=== PATIENT | female | born 1955 | race African-American/Black ===

== ENCOUNTER 2018-12-11 06:47 | Inpatient (IN) | payer OTHER ==
[~2018-12-11] VITALS: Ht 160 cm; Wt 112.5 kg
[2018-12-11] VITALS (10 sets, daily range): BP systolic 102–128; BP diastolic 56–82
[2018-12-11] MEDS ORDERED: ceFAZolin sod 1 GM in NS 55 ML IVPB ONE (07:00)
[2018-12-11] MEDS ORDERED: Gelfoam Size TOPIC ONE (07:30)
[2018-12-11] MEDS ORDERED: Thrombin 5000 units spray kit TOPIC ONE (07:30)
[2018-12-11] MEDS ORDERED: Bupivacaine w/Epi 0.5% 30ml Vial INJ ONE (07:30)
[2018-12-11] MEDS ORDERED: Thrombin 5000 units TOPIC ONE ×3 (07:30→07:38)
[2018-12-11] MEDS ORDERED: Gelfoam Absorbable 1gm powder pkt TOPIC ONE (07:31)
[2018-12-11] MEDS ORDERED: Bacitracin 50000 Units Vial ONE (07:31)
[2018-12-11] MEDS ORDERED: ATORVASTATIN CA20 MG ORAL (07:36)
[2018-12-11] MEDS ORDERED: ACTOS30 MG ORAL (07:36)
[2018-12-11] MEDS ORDERED: GLIPIZIDE5 MG ORAL (07:36)
[2018-12-11] MEDS ORDERED: METFORMIN HCL500 M1 ORAL (07:36)
[2018-12-11] MEDS ORDERED: Zemuron 50mg/5ml Inj IV ONE (07:56)
[2018-12-11] MEDS ORDERED: NS Irrig 1000ml ONE (08:00)
[2018-12-11] MEDS ORDERED: LR 1000ml ONE (08:00)
[2018-12-11] MEDS ORDERED: Sterile Water Irrig 1000ml IRRIG ONE (08:00)
--- NOTE | 2018-12-11 08:08 | Anethesia Preoperative Eval ---
Anesthesia Pre-op PMH/ROS General Date of Evaluation: December 11, 2018 Time of Evaluation: 08:11 Anesthesiologist: Corona ASA Score: ASA 3 Mallampati Score Class I : Soft palate, uvula, fauces, pillars visible Class II: Soft palate, uvula, fauces visible Class III: Soft palate, base of uvula visible Class IV: Only hard plate visible Mallampati Classification: Class III Surgeon: Bryan Diagnosis: Back Pain Surgical Procedure: Left L5-S1 Microdiscectomy, Laminotomy, Foraminotomy Family History: no anesthesia problems Allergies: Coded Allergies: LATEX (Verified Allergy, Severe, Rash, 12/11/18) NAPROXEN (Verified Allergy, Severe, Hives, 12/11/18) Medications: see eMAR Patient NPO?: Yes NPO Date: December 10, 2018 NPO Time: 2229 Past Medical History Cardiovascular: Reports: HTN, other - HL Endocrine: Reports: DM - FBS 144 Other: obesity - Morbid BMI 42 Anesthesia Pre-op Phys. Exam Physician Exam Last Vital Signs Date Time Temp Pulse Resp B/P (MAP) Pulse Ox O2 Delivery O2 Flow Rate FiO2 12/11/18 07:59 Room Air 12/11/18 07:32 97.6 84 18 128/82 (97) 98 Constitutional: NAD Neurologic: CN 2-12 intact Cardiovascular: RRR Respiratory: CTA Gastrointestinal: S/NT/ND Airway Exam Mallampati Score: Class III MO: limited ROM: limited Teeth: missing Anesthesia Pre-op A/P Risk Assessment & Plan Assessment: ASA 3 Plan: GA, SED, GlideScope Go Status Change Before Surgery: No Pre-Antibiotics Dru Grams Ancef IV Given Within 1 Hr of Incision: Yes Time Given: 08:36 Mt Jeter MD December 11, 2018 08:08
[2018-12-11] MEDS ORDERED: LR 1000ml 1,000 ML IVLG SCH (08:09)
[2018-12-11] MEDS ORDERED: Metoclopramide 10mg/2ml Inj IVP PRN (08:15)
[2018-12-11] MEDS ORDERED: Meperidine 50mg/ml Inj(FOR RIGORS ONLY) IVP PRN (08:15)
[2018-12-11] MEDS ORDERED: Hydromorphone 0.5mg/0.5ml inj IVP PRN ×2 (08:15→18:30)
[2018-12-11] MEDS ORDERED: DiphenhydrAMINE 50mg/ml Inj IVP PRN (08:15)
[2018-12-11] MEDS ORDERED: Atropine Sulfate 0.4mg/ml inj IVP PRN (08:15)
[2018-12-11] MEDS ORDERED: HYDROcodone/Acetamin 5/325 tab ORAL PRN (08:15)
[2018-12-11] MEDS ORDERED: HYDROcodone/Acetamin 7.5/325 tab ORAL PRN (08:15)
[2018-12-11] MEDS ORDERED: LORazepam Inj 2mg/ml 1ml IV PRN (08:15)
[2018-12-11] MEDS ORDERED: Midazolam 2mg/2ml Inj IVP PRN (08:15)
[2018-12-11] MEDS ORDERED: Labetalol 5mg/ml 20ml vial IV PRN (08:15)
[2018-12-11] MEDS ORDERED: fentaNYL 100 mcg/2 mL IV PRN (08:15)
[2018-12-11] MEDS ORDERED: oxyCODONE HCL/Acetaminophen 5/325mg ORAL PRN (08:15)
[2018-12-11] MEDS ORDERED: Acetaminophen (Non formulary) 100 ML IV ONE (08:15)
[2018-12-11] MEDS ORDERED: fentaNYL 100 mcg/2 mL IV ONE ×2 (08:24→10:10)
[2018-12-11] MEDS ORDERED: Lidocaine 1% MPF 10mg/ml 5ml ONE (08:26)
[2018-12-11] MEDS ORDERED: Lidocaine 1% Plain 30 ml INJ ONE (08:26)
--- NOTE | 2018-12-11 08:56 | Pre-Procedure Note/Attestation ---
Pre-Procedure Note/Attestation Complete Prior to Procedure Procedure Narrative: Lami discectomy l5s1 Indications for Procedure Pre-Operative Diagnosis: L5s1 HNP with radiculopathy Attestation I attest that I discussed the nature of the procedure; its benefits; risks and complications; and alternatives (and the risks and benefits of such alternatives ), prior to the procedure, with the patient (or the patient's legal internet sales representative). I attest that, if there was a reasonable possibility of needing a blood transfusion, the patient (or the patient's legal internet sales representative) was given the [facility] standardized written summary, pursuant to the [place] Blood Safety Act ([place] Health and Safety Code # 1645, as amended). I attest that I re-evaluated the patient just prior to the surgery and that there has been no change in the patient's H&P, except as documented below: Quentin Adams MD December 11, 2018 08:56
--- NOTE | 2018-12-11 09:00 | Immediate Post-Op Evaluation ---
Immediate Post-Op Evalulation Immediate Post-Op Evalulation Procedure: Left L5-S1 Microdiscectomy, Laminotomy, Foraminotomy Date of Evaluation: December 11, 2018 Time of Evaluation: 11:30 IV Fluids: 1000 LR Blood Products: 0 Estimated Blood Loss: 25 Urinary Output: 200 Blood Pressure Systolic: 102 Blood Pressure Diastolic: 63 Pulse Rate: 78 Respiratory Rate: 18 O2 Sat by Pulse Oximetry: 100 Temperature (Fahrenheit): 97.3 Pain Score (1-10): 3 Nausea: No Vomiting: No Complications 0 Patient Status: awake, reacts, patent, extubated, none Hydration Status: adequate Dru Grams Ancef IV Given Within 1 Hr of Incision: Yes Time Given: 08:36 Mt Jeter MD December 11, 2018 08:59
[2018-12-11] MEDS ORDERED: NS Irrig 1000ml IRRIG ONE (09:04)
[2018-12-11] MEDS ORDERED: Glycopyrrolate 0.2mg/ml 1ml Vial ONE (10:06)
[2018-12-11] MEDS ORDERED: D5 1/2NS 1,000 ML IV SCH (10:50)
--- NOTE | 2018-12-11 10:51 | Brief Operative Note ---
Immediate Post Operative Note Operative Note Pre-op Diagnosis: L5s1 HNP with radiculopathy Procedure: Ll5S1 lami/discectomy Post-op Diagnosis: same as pre-op Findings: consistent w/pre-op dx studies Surgeon: talya Spiral Gear Generator: jeanie packer Anesthesiologist: fco Yin Anesthesia: general Specimen: yes Complications: none Condition: stable Fluids: 1L Estimated Blood Loss: minimal Drains: hemovac Implant(s) used?: No Quentin Adams MD December 11, 2018 10:51
[2018-12-11] MEDS ORDERED: Milk of Magnesia 30ml Ud ORAL PRN (11:00)
--- NOTE | 2018-12-11 11:19 | NUR ---
LATEX FREE ENVIRONMENT MAINTAINED FOR PATIENT
--- NOTE | 2018-12-11 12:10 | NUR ---
NURSE NOTES:Received patient fr.pacu by bed s/p l5/c1mmtagqnqjg/foraminotomy/microdiscectomy,drowsy bur arousable moving all extremities,iv site right hand#18 patent,on 3liters n/c,back dressing c/d/i.but hemovac not suctioning upon arrival to floor,ice packon.per wilderness guide(jami). is aware.current pain 10/24,was just medicated in pacu.awaiting for call back fr.dr thapa for pain mgt.patient and family aware.plan of care discussed and verbalized understanding.
--- NOTE | 2018-12-11 13:20 | NUR ---
NURSE NOTES:place a call to dr. thapa for pain meds.awaiting for call back
--- NOTE | 2018-12-11 13:25 | Diagnostic Imaging Report ---
Indication: Intraoperative imaging COMPARISON: None FINDINGS: 3 fluoroscopic images were obtained intraoperatively. Localization image on multiple crosstable lateral views at L4-5 and L5-S1 noted IMPRESSION: Intraoperative imaging as described above
[2018-12-11] MEDS ORDERED: Cyclobenzaprine 10mg Tab ORAL PRN (14:30)
[2018-12-11] MEDS ORDERED: HYDROmorphone 1mg/ml Carpuject SUBQ PRN (14:30)
[2018-12-11] MEDS ORDERED: HYDROcodone/Acetamin 10/325 tab ORAL PRN ×2 (14:30→23:30)
--- NOTE | 2018-12-11 14:35 | NUR ---
NURSE NOTES: returned call,due orders carried out
--- NOTE | 2018-12-11 16:00 | Operative Note - Dictated ---
DATE OF OPERATION: 12/11/2018 SURGEON: Quentin Adams M.D. PROJECT PLANNER: Thong Garcia PA-C. ANESTHESIA: Mt Jeter M.D. ANESTHESIA TYPE: General endotracheal anesthesia. PREOPERATIVE DIAGNOSIS: Disk protrusion L5-S1 with left lower extremity radiculopathy. POSTOPERATIVE DIAGNOSIS: Disk protrusion L5-S1 with left lower extremity radiculopathy. PROCEDURE: 1. Hemilaminectomy, medial facetectomy, left side L5-S1. 2. Microscopic diskectomy, left side L5-S1. 3. Procedure markedly complicated due to the patient's morbid obesity (BMI of 42). 4. Use of operating microscope. 5. Neurodiagnostic monitoring. 6. Use of fluoroscopy for localization purposes. INDICATIONS: The patient is a 63-year-old woman with chronic radiculopathic findings, left lower extremity. MRI confirmed disc protrusion L5-S1 with left-sided annular tear. Surgical options were discussed after conservative care failed. RISK NOTE: The patient explained in detail risks and benefits of surgery to include, but not be limited to those of bleeding, infection, damage to nerves, vessels, tendons, anesthetic risks, allergic reaction, aspiration, possibly . The patient understood and wished to proceed. INTRAOPERATIVE FINDINGS: Markedly swollen and indurated S1 nerve root, left side. OPERATIVE PROCEDURE IN DETAIL: The patient was taken to the operating suite. After general endotracheal anesthesia was obtained, Maravilla catheter was placed. She was turned prone onto the Kannan frame. All bony prominences were well padded. Back was prepped and draped in usual sterile fashion. Two spinal needles were placed at about the L4-L5 and L5-S1 levels. Fluoroscopically, the general area was confirmed. At this point, an incision was made from L3 through S1. Please note that due to the patient's morbid obesity, a much larger incision was required in order to visualize the superficial anatomy. At this point, the L5-S1 spinous process was palpated and the subperiosteal dissection was carried out on the left side at L5 and S1 and fluoroscopically the level was verified. At this point, multiple attempts were made using traditional self-retaining retractors such as the Yovani and or Bobcat Driver/Labor; however, was to no avail as the blades were not deep enough. Ultimately, a combination of angled cerebellar retractors as well as the Susie Super slide retractor was chosen to obtain visualization of the affected area. Fluoroscopically, the level was once again reconfirmed. At this point, a high-speed drill was used to remove the superficial lamina of L5 as well as partial medial facetectomy. Combination of Kerrison 3 and 4 and 5 punches were then used to remove the leading edge of the lamina. Ligamentum flavum was removed in a piecemeal fashion. At this point, the S1 nerve root was identified and noted to be extremely indurated/red due to chronic compression. The nerve root was then gently retracted medially. Epidural neovascularization was identified and this was bipolared. A disc protrusion locally was identified. The disk was incised using a 11 blade. Multiple passes with narrow pituitary as well as angled pituitary as well as down pushing curettes achieved a thorough decompression and removal of the extruded fragments. Copious intradiscal irrigation was used to remove any loose disk fragments. Once satisfied with the decompression, FloSeal was applied. Meticulous hemostasis was achieved. The fascia was repaired using #1 Vicryl. Superficial irrigation was performed. Superficial medium-sized Hemovac drain was applied. Subcutaneous closure using 2-0 Vicryl was achieved. Dressing was applied. The patient was then turned onto her back, awakened, extubated, and transferred to recovery room in stable condition. Sponge and needle counts were correct. ESTIMATED BLOOD LOSS: Minimal. COUNTS: Sponge and needle counts correct. FLUIDS: 1 liter. Quentin Hank Adams DR: VERONICA JOB#: [id number] CC:
--- NOTE | 2018-12-11 16:37 | NUR ---
CASE MANAGEMENT:REVIEW 63 YR OLD FEMALE HERE FOR ELECTIVE SURGERY SI: DISK PROTRUSION W/RADICULOPATHY 97.6 84 18 128/82 98% ON RA IS: TO SURGERY: HEMILAMINECTOMY,FACETECTOMY IV ANCEF Q8HRS IVF@100/HR : TO MED/SURG [facility]
[2018-12-11] MEDS: ceFAZolin sod 1 GM in D5W 55 ML IV SCH (16:45)
[2018-12-11] MEDS: GlipiZIDE 5mg tab ORAL SCH (17:02)
[2018-12-11] MEDS: NovoLOG Insulin Flexpen SUBQ SCH ×2 (17:08→20:20)
--- NOTE | 2018-12-11 17:55 | NUR ---
NURSE NOTES:dr. babin notified re:patient wants solid food,patient not passing gas yet,informed also that hemovac is not suctioning since it was endorsed by furniture shampooer(jami). stated to do check for any leakage on sites and add tegaderm.3 small tegaderm applied and compressed,continue to suction. informed.
[2018-12-11] MEDS: Docusate 100mg cap ORAL SCH (18:00)
--- NOTE | 2018-12-11 19:26 | NUR ---
HAND-OFF: Report given to REINIER MISHRA RN.PATIENT STABLE.
--- NOTE | 2018-12-11 19:47 | NUR ---
NURSE NOTES: Received report from Deja SERNA. Patient call light on. RN made rounds and tried to help patient off the bedpan, Even before I started to move the patient. Patient started yelling and screaming. "I don't want you. Get me somebody else. Get me a female nurse." Gave report to Maricruz SERNA.
--- NOTE | 2018-12-11 19:55 | NUR ---
NURSE NOTES: Received a report from Cj Salazar RN. Pt is AAOX4. Able to make needs known. Uses nasal cannula 3L/min. IV site is patent and intact. C/O 8/10 back pain. Will give pain medication later. Surgical dressing is dry and intact. No bleeding noted. Hemovac is in place, not draining well. Dr. Adams is aware that the hemovac is not draining well. Bed in lowest position. Bed alarm is on. Call light within reach. Will continue to monitor.
--- NOTE | 2018-12-11 20:00 | NUR ---
NURSE NOTES: Pt refused 2000 V/S. She is uncooperative and rude towards the staff. She only wants female nurses. Charge Nurse Lexii made aware.
[2018-12-11] MEDS ORDERED: Atorvastatin 20mg tab ORAL SCH (21:00)
--- NOTE | 2018-12-11 21:00 | NUR ---
NURSE NOTES: Pt refused the insulin despite education provided.
--- NOTE | 2018-12-11 21:30 | NUR ---
NURSE NOTES: Pt refused IS instruction. She stated that she will let me know if she wants the IS later.
[2018-12-11] MEDS: HYDROcodone/Acetamin 10/325 tab ORAL SCH (23:27)
[2018-12-11] MEDS ORDERED: Chloraseptic Spray 20mL Bottle ORAL PRN (23:30)
[2018-12-12] VITALS (7 sets, daily range): BP systolic 100–124; BP diastolic 55–80
[2018-12-12] MEDS: ceFAZolin sod 1 GM in D5W 55 ML IV SCH ×2 (00:19→08:42)
--- NOTE | 2018-12-12 00:30 | NUR ---
NURSE NOTES: Pt is comfortably sleeping.
--- NOTE | 2018-12-12 01:30 | NUR ---
NURSE NOTES: Pt is comfortably sleeping.
--- NOTE | 2018-12-12 02:30 | Consultation ---
DATE OF CONSULTATION: 12/11/2018 CONSULTING PHYSICIAN: Adan Carter M.D. REFERRING PHYSICIAN: Quentin Adams M.D. REASON FOR CONSULTATION: Acute pain consult. HISTORY OF PRESENT ILLNESS: Dear Quentin Adams, Thank you kindly for consulting me to evaluate and render an opinion as to how to proceed in the management of the patient's acute postoperative lumbar spine pain after her lumbar spine decompressive surgery today. The patient is an elderly morbidly obese 63-year-old woman who injured her lumbar spine in a work-related injury. She has been using escalating doses of hydrocodone over the past weeks with her worsening lumbar spine pain. The patient underwent lumbar spine decompressive surgery and complained of severe 9/10 pain postoperatively. She has been trialed on multiple doses of fentanyl, Demerol and Dilaudid, but still complained that her pain is inadequately controlled. On request of the patient for acute pain consultation, I saw the patient at bedside with RN, Maricruz, who chaperoned throughout the entire history and physical examination. I discussed the case with the recovery room nurse along with the hospital pharmacist and yourself, Dr. Adams to help improve the patient's postoperative pain. I performed detailed history and physical examination. I spent over 75 minutes in consultation with an additional 30 minutes in medical record review. Multiple records were reviewed from the patient's hospital chart including utilization review and surgical authorization by [facility] dated 10/01/2018 authorizing lumbar spine surgery and hospital stay as certified. Preoperative records from Dr. Tristin Trevizo M.D. were reviewed from the date of service, 12/03/2018 along with diagnostic testing. Multiple records were reviewed from today's date of surgery at [facility], 12/11/2018 including consent for surgical treatment, consent for anesthesia, consent for blood products, medication administration record, medication reconciliation order form, PACU record, PACU orders, anesthesia record, pre- and post anesthesia evaluation record, postoperative spine surgical orders and postoperative surgery report by Dr. Adams, surgical invasive procedure check list, preoperative nursing plan of care, 24-hour medical surgical flow sheet, preoperative record, guidelines for DVT prophylaxis, and guidelines for prophylactic antibiotics. PAST MEDICAL HISTORY: 1. Acute postoperative lumbar spine pain, status post lumbar spine surgery by Dr. Quentin Adams, November 2018. 2. Work-related injury. 3. Morbid obesity with a body mass index greater than 40. 4. Diabetes. 5. Hyperlipidemia. PAST SURGICAL HISTORY: 1. Miscarriage. 2. Lipoma resection. 3. Tonsillectomy. FAMILY HISTORY: Obesity. SOCIAL HISTORY: The patient denies tobacco or marijuana usage. She lives alone, but her son is visiting from [place] to care for over the next two weeks. ALLERGIES: Naprosyn. REVIEW OF SYSTEMS: Per Dr. Tritsin Trevizo M.D. MEDICATIONS: At home, glipizide, metformin, Lipitor, pioglitazone, and [place] 10/325 mg one tablet at least five times per day recently. PHYSICAL EXAMINATION: GENERAL: Age 63. Height 5 feet 3 inches. Weight 230 pounds. Body mass index 41. VITAL SIGNS: Afebrile. Pulse 86, respirations 20, blood pressure 111/56, and oxygen saturation 97% on supplemental oxygen. HEENT: Normocephalic and atraumatic. No Shine's palsy. No Jaye syndrome. Extraocular muscles intact. The patient appears in significant distress secondary to postoperative pain. She is lying in the right lateral decubitus position. CHEST: Clear to auscultation. BACK: Lumbar spine exam shows dressing dry with Hemovac drain holding suction with minimal output. MUSCULOSKELETAL: Moving all extremities x4 with significant pain with log-rolling. ABDOMEN: Massively obese with positive pannus. BREASTS: Deferred to hospitalist. GENITOURINARY: Deferred to hospitalist. DIAGNOSTIC TESTING: On 12/03/2018 shows INR 1.3, PTT 35. Glucose 109. Sodium 140, potassium 4.6, chloride 104, bicarb 26, BUN 10, and creatinine 0.8. Calcium 9.5. Total protein 7.1, albumin 4.1. AST 20, ALT 29, total bilirubin 0.3. White count 5, hematocrit 43, platelets 236. Urine toxicology screen all negative. A 12-lead EKG shows normal sinus rhythm, ventricular rate 94. Preoperative chest x-ray shows no acute cardiopulmonary disease, dated 12/03/2018. MRI lumbar spine dated 07/18/2018 shows 3 mm disk protrusion at L5-S1 and L4-L5. IMPRESSION: 1. Acute postoperative lumbar spine pain, status post lumbar spine surgery by Dr. Quentin Adams, November 2018. 2. Work-related injury. 3. Morbid obesity with a body mass index greater than 40. 4. Diabetes. 5. Hyperlipidemia. TREATMENT RECOMMENDATIONS: The patient complains of significant postoperative pain. She did admit at the bedside during my interview that she has been using [place] 10 mg tablets at least 5 or 6 times per day in the recent past. Certainly, this usage is contributing to her severe pain postoperatively, as she has certainly developed some tachyphylaxis to opioid agonist. Due to her massive obesity, I am hesitant to dose the patient with too high of a dose of Dilaudid. She has been tolerating Dilaudid without any adverse side effects, but I would limit the intravenous dose to 0.5 mg, which I will make available intravenously every two hours p.r.n. for pain 12/24. I have instructed the nursing team to wait at least 60 minutes between any doses of Dilaudid or any other sedating or pain medications to avoid respiratory depression possibilities in this obese lady. Because the patient has been using considerable doses of [place] River preoperatively, I will place her on skghpt-wmf-gtowd [place] 1 tablet of 10 mg every 4 hours for baseline analgesia noted to be certain to hold this scheduled [place] dose in case of any oversedation or respiratory problems. I have also reiterated to the nursing and pharmacy staff to wait at least 60 minutes between any doses of sedating agents. The patient will be on zsnkyj-uup-qlxgn [place], which contains Tylenol, I have discontinued plain orders for Tylenol and will use a p.r.n. dose of [place] 10 mg for breakthrough pain rated 1 to 5, along with p.r.n. for fever greater than 100.5 temperature readings. The patient has stated that Soma has been helpful both for insomnia and for spasm. I have ordered 350 mg of oral Soma every 8 hours p.r.n. for muscle spasms or insomnia. I have discontinued previous orders for Flexeril and benzodiazepines, which may exacerbate respiratory depression symptoms. The patient is very concerned about opioid-induced constipation. I will place her on Colace and Senokot b.i.d. until she is more mobile. Then, I would recommend being more aggressive with laxatives including prune juice, possibly Metamucil, magnesium citrate, or Dulcolax suppository. The patient does have diabetes, which will be managed by the hospitalist team. Incentive spirometer has been placed at the bedside to encourage good pulmonary toilet. The patient will have sequential compression pneumatic devices ordered for DVT prophylaxis. I have ordered Benadryl 5 mg every 6 hours as needed for itching complaints and I will place the patient on Pepcid 20 mg b.i.d. for GI ulcer prophylaxis along with a p.r.n. dose of milk of Mylanta for any GERD symptom exacerbation. I have left a prescription for the patient to get her son to drop-off at the local [facility] pharmacy to expedite dispensing of medication. I have left a prescription of [place] 10 mg with the quantity of 75, along with Soma for quantity of 40. Adan Carter M.D. DR: ROBERT JOB#: [id number] CC:
[2018-12-12] MEDS: Hydromorphone 0.5mg/0.5ml inj IVP PRN ×4 (03:08→20:34)
[2018-12-12] MEDS: HYDROcodone/Acetamin 10/325 tab ORAL SCH ×5 (04:12→20:00)
[2018-12-12] MEDS: GlipiZIDE 5mg tab ORAL SCH ×2 (06:46→17:03)
[2018-12-12] MEDS: NovoLOG Insulin Flexpen SUBQ SCH ×4 (06:48→21:02)
[2018-12-12 06:49] LABS: ANION GAP 7 mmol/L (5-15); BLOOD UREA NITROGEN 13 mg/dL (7-18); CALCIUM 8.7 MG/DL (8.5-10.1); CARBON DIOXIDE 28 MMOL/L (21-32); CHLORIDE 103 MMOL/L (98-107); CREATININE 0.9 MG/DL (0.55-1.30); POTASSIUM 4.3 MMOL/L (3.5-5.1); SODIUM 138 MMOL/L (136-145)
--- NOTE | 2018-12-12 07:10 | NUR ---
NURSE NOTES:lying on her left side during initial rounds,lower back drsng.c/d/i.comfortable at this time,pain 210.plan of care discussed and verbalize with understanding.
--- NOTE | 2018-12-12 07:10 | NUR ---
HAND-OFF: Report given to DAPHNE Short.
--- NOTE | 2018-12-12 08:30 | Progress Note ---
DATE: 12/12/2018 ACUTE PAIN MANAGEMENT PHYSICIAN PROGRESS NOTE: MEDICATIONS: Medication administration record reviewed. Medications include Mylanta, Lipitor, Soma, Benadryl, Colace, Pepcid, Glucotrol, [place], Dilaudid, sliding scale insulin, milk of magnesia, Demerol, Zofran, Chloraseptic spray, Actos, Senokot. LABORATORY STUDIES: From this morning are pending. VITAL SIGNS: Within normal limits. Afebrile, respirations within normal limits on nasal cannula oxygen. I saw the patient at the bedside with the nurse RN, Maricruz. The patient is awake and shows no signs of oversedation. In the past 2 hours, she has received serial doses of Dilaudid 0.5 mg intravenously followed an hour later by [place] 10 mg, followed by recently another Dilaudid injection of 0.5 mg. This dosing, spaced 1 hour apart, has provided adequate safety profile without signs of oversedation. The patient is still wide awake, she still says that the pain is significant with movement and log-rolling. I have asked the nurse to dose the patient with Soma 1 hour after her most recent Dilaudid injection. The patient does state that Soma does help in the past. I did leave a prescription for River[place] 10 mg tablets along with Soma for outpatient usage. I have asked the patient to have her son drop this off at a local [facility] pharmacy to help expedite this dispensing. I did start the patient on around the clock River[place] 10 mg every 4 hours to improve baseline analgesia. The patient has received 2 doses, but has not shown signs of oversedation. I will ask the patient if she felt comfortable to trial 1.5 tablets, and the patient has agreed. So, I will increase the scheduled hydrocodone 10 mg every 4 hours dosing to 1.5 tablets around the clock. I have discontinued plain Tylenol to avoid overdosing of Tylenol. At this time, I would try to keep the Dilaudid dosing at 0.5 mg dosing. With her significant morbid obesity with a body mass index of 41, I am hesitant to increase the dose to 1 mg while she is already on scheduled Riverdale. The patient did state that she was taking at least 5 tablets of River[place] daily preoperatively. I discussed output from the indwelling lumbar spine drain catheter with the surgeon, Dr. Adams. The Hemovac is now holding suction; however, the drain output has been trace for the past 12 hours. The patient was log-rolled to the right lateral decubitus position with nurse and the medical team. I removed the lumbar spine dressing showing the incision line clean and dry with DuraBond sealant intact. There was no evidence for erythema or exudate. With the Hemovac drain taken off of suction, and end-expiration, I personally removed the indwelling lumbar spine drain catheter. The tip was intact. Alcohol swabbing was applied generously to the drain hole site. Sterile 4 x 4 gauze was then applied over the drain hole site and the incision line, covered by 6 x 6 island bordered gauze dressing. There were no complications. We will see how the patient advances with physical therapy later today. The hospitalist will manage the patient's diabetes and IV fluids along with other medical issues. Incentive spirometer has been encouraged for good pulmonary toilet. Sequential compression pneumatic devices are in place for DVT prophylaxis. Adan Carter M.D. DR: RAYMOND JOB#: [id number] CC:
[2018-12-12] MEDS: Docusate 100mg cap ORAL SCH ×2 (08:41→16:59)
[2018-12-12] MEDS: Sennosides 8.6mg tab ORAL SCH ×2 (08:42→16:59)
--- NOTE | 2018-12-12 09:00 | NUR ---
NURSE NOTES:GOT UP WITH PHYSICAL THERAPY BUT JUST HAD FEW SIDE STEPS
--- NOTE | 2018-12-12 10:08 | 48 Hour Post Anesthesia Eval ---
Post Anesthesia Evaluation Procedure: Left L5-S1 Microdiscectomy, Laminotomy, Foraminotomy Date of Evaluation: December 12, 2018 Time of Evaluation: 10:08 Blood Pressure Systolic: 119 0: 74 Pulse Rate: 95 Respiratory Rate: 17 Temperature (Fahrenheit): 97.9 O2 Sat by Pulse Oximetry: 98 Airway: patent Nausea: No Vomiting: No Pain Intensity: 2 Hydration Status: adequate Cardiopulmonary Status: Stable Mental Status/LOC: patient returned to baseline Follow-up Care/Observations: 0 Post-Anesthesia Complications: 0 Follow-up care needed: N/A Mt Jeter MD December 12, 2018 10:08
[2018-12-12] MEDS: metFORMIN 500mg tab ORAL SCH ×2 (11:37→17:02)
--- NOTE | 2018-12-12 11:45 | NUR ---
NURSE NOTES:DR. AGUILAR CALLED IN AND UPDATED RE:PATIENTS STATUS,FOR D/C PLAN TOMORROW.
--- NOTE | 2018-12-12 12:25 | NUR ---
NURSE NOTES:AMBULATED TO BATHROOM USING WALKER WITH STAND BY ASSIST.TOLERATED WELL.SITTING IN CHAIR FOR LUNCH.
--- NOTE | 2018-12-12 13:56 | Orthopedic Spine Progress Note ---
Ortho Spine - Progress Note Subjective Symptoms: c/o post-op back pain, improved - as compared to pre-op Objective Vital Signs: Last 24 Hour Vital Signs Date Time Temp Pulse Resp B/P (MAP) Pulse Ox O2 Delivery O2 Flow Rate FiO2 12/12/18 11:52 98.2 92 16 121/78 (92) 98 12/12/18 10:08 95 17 98 12/12/18 07:53 97.9 95 17 119/74 (89) 98 12/12/18 07:16 98.1 12/12/18 07:10 Nasal Cannula 3.0 12/12/18 05:43 98.1 12/12/18 04:00 98.1 108 19 118/64 (82) 95 12/12/18 00:00 97.7 107 20 100/55 (70) 94 12/11/18 23:57 97.9 12/11/18 21:00 Nasal Cannula 3.0 12/11/18 20:45 97.9 12/11/18 17:00 97.9 86 20 111/56 (74) 97 I&O: Intake and Output 12/11/18 12/12/18 19:00 07:00 Intake Total 1590 ml 1160 ml Output Total 250 ml Balance 1340 ml 1160 ml Intake Oral 240 ml 360 ml IV Total 1350 ml 800 ml Output Urine Total 200 ml Estimated Blood Loss 50 ml # Voids 1 5 Wound: clean, intact Drains: none Assessment Procedure Performed: Ll5S1 lami/discectomy Plan Plan: PT, pain management, discharge plan Quentin Adams MD December 12, 2018 13:56
--- NOTE | 2018-12-12 13:57 | NUR ---
CASE MANAGEMENT:REVIEW 12/12/18 SI: POD #1 S/P HEMILAMINECTOMY,FACETECTOMY 98.2 92 16 121/78 98%c ON RA GLUCOSE+129 IS: METFORMIN PO TID NORCO PO Q4HRS IV DILAUDID Q2HRS PRN COLACE PO BID : MED/SURG STATUS 3 EAST DCP: HOME
--- NOTE | 2018-12-12 17:06 | NUR ---
P.T Note: late entry 0945 P.T evaluation completed and treatment initiated per spinal protocol. Please refer to P.T evaluation for current functional status. Skilled P.T service is warranted to ensure safety and compliance with spinal precautions for functional mobilities/activities.
--- NOTE | 2018-12-12 19:50 | NUR ---
HAND-OFF: Report given to Sara batista.patient stable.
--- NOTE | 2018-12-12 19:50 | NUR ---
NURSE NOTES:Patient received A/A/AOX4 .surgical posterior back dressing C/D/I. RH g#18 H/L Patent and intact.Patient c/o back pain .Pain rating 10. Norco1.5 mg po . refused by patient . "Patient states when I take that medication it takes time for me to get the Dilaudid IVP."Explained to patient . "Patient started yelling and screaming states I don't want you . get somebody else" Santhosh BUNDY notified and aware .call light within reach . bed in low position . will continue to monitor.
--- NOTE | 2018-12-12 20:38 | Cardiology Progress Note ---
Assessment/Plan Assessment/Plan [id number] on usual diabetic med bs seem fine she has pain limiting her mobility dvt ppx pneumatic stocking ambulate dr thapa following home soon Objective Last 24 Hour Vital Signs Date Time Temp Pulse Resp B/P (MAP) Pulse Ox O2 Delivery O2 Flow Rate FiO2 12/12/18 16:11 98.2 90 16 116/80 (92) 98 12/12/18 11:52 98.2 92 16 121/78 (92) 98 12/12/18 10:08 95 17 98 12/12/18 07:53 97.9 95 17 119/74 (89) 98 12/12/18 07:16 98.1 12/12/18 07:10 Nasal Cannula 3.0 12/12/18 05:43 98.1 12/12/18 04:00 98.1 108 19 118/64 (82) 95 12/12/18 00:00 97.7 107 20 100/55 (70) 94 12/11/18 23:57 97.9 12/11/18 21:00 Nasal Cannula 3.0 12/11/18 20:45 97.9 Intake and Output 12/11/18 12/12/18 19:00 07:00 Intake Total 1590 ml 1160 ml Output Total 250 ml Balance 1340 ml 1160 ml Intake Oral 240 ml 360 ml IV Total 1350 ml 800 ml Output Urine Total 200 ml Estimated Blood Loss 50 ml # Voids 1 5 Laboratory Tests Test 12/12/18 05:00 Sodium Level 138 MMOL/L (136-145) Potassium Level 4.3 MMOL/L (3.5-5.1) Chloride Level 103 MMOL/L (98-107) Carbon Dioxide Level 28 MMOL/L (21-32) Anion Gap 7 mmol/L (5-15) Blood Urea Nitrogen 13 mg/dL (7-18) Creatinine 0.9 MG/DL (0.55-1.30) Estimat Glomerular Filtration Rate > 60 mL/min (>60) Glucose Level 135 MG/DL (74-106) H Calcium Level 8.7 MG/DL (8.5-10.1) Alonzo Lakhani MD December 12, 2018 20:37
[2018-12-13] VITALS: BP 118/61
--- NOTE | 2018-12-13 00:15 | Consultation ---
DATE OF CONSULTATION: 12/12/2018 CARDIOLOGY CONSULTATION CONSULTING PHYSICIAN: Alonzo Lakhani M.D. REFERRING PHYSICIAN: Quentin Adams M.D. REASON FOR REFERRAL: Postoperative medical care. HISTORY OF PRESENT ILLNESS: The patient has had history of lumbar spine surgery performed by Dr. Adams recently. I am seeing her in postoperative medical consultation. The patient is feeling the only issue is pain. The pain that she is experiencing postoperatively prohibits her from freely walking to the bathroom. Otherwise, she denies any chest pain. There is no shortness of breath. There is no dizziness or lightheadedness. No heart pounding or palpitations. There is no PND or orthopnea. PAST MEDICAL HISTORY: Positive for diabetes and hyperlipidemia. No history of heart attack. No cancer. No stroke. No hepatitis or tuberculosis. No asthma or emphysema. No ulcers. No kidney problems, liver problems, thyroid problems, anemia, arthritis, HIV, or AIDS. She does have a history of DVT at age of 18 for which she took anticoagulants for a while. PAST SURGICAL HISTORY: Positive for tonsillectomy, lipoma, and miscarriage. HOME MEDICATIONS: Glipizide 10 mg twice daily, metformin 500 mg three times a day, atorvastatin 5 mg nightly, pioglitazone 30 mg daily, [place] 10/325 which has been started already and the patient is doing well. FAMILY HISTORY: Father is and mother is . one son and one daughter, all are healthy. One sister is . SOCIAL HISTORY: She has a history of tobacco use many years ago. No alcohol. No drugs. REVIEW OF SYSTEMS: GASTROINTESTINAL: No nausea or vomiting. She has not had any bowel movement yet postoperatively. GENITOURINARY: She is needing to have to go to the bathroom, but she is having some pain. No burning or blood in her urine. PULMONARY: Denies any coughing or wheezing. CONSTITUTIONAL: No fever, chills, or night sweats. PHYSICAL EXAMINATION: GENERAL: Shows to be morbidly obese female, in no respiratory distress. She is lying down in the right lateral decubitus position. NECK: Supple. No jugular venous distention. LUNGS: Clear to auscultation and percussion . CARDIAC: Regular rate and rhythm. No heaves, thrills, gallops, or rubs are noted. ABDOMEN: Soft and nontender. Positive bowel sounds. EXTREMITIES: There is no clubbing, cyanosis, or edema. NEUROLOGICAL: She is awake, alert, responsive, and moving all four extremities. LABORATORY VALUES: None postoperatively. Her blood sugars range between 136 to 119 and she is on a sliding scale of insulin at this time. ASSESSMENT AND PLAN: 1. Diabetes mellitus. 2. Hyperlipidemia. 3. Obesity. 4. Degenerative disorder of the spine. 5. Postoperative pain. This patient was seen in medical consultation with insulin sliding scale in addition to her usual diabetic medications have been started. The patient should be on a diabetic diet at this time. DVT prophylaxis with use of compression stockings. She is able to eat. She probably would not require any more intravenous fluids which can be discontinued at this time. She is already ambulating to the bathroom, awaits having bowel movements and being able to go home hopefully tomorrow morning. Alonzo Lakhani M.D. DR: Fina JOB#: [id number] CC:
[2018-12-13] MEDS: HYDROcodone/Acetamin 10/325 tab ORAL SCH ×4 (00:42→11:52)
[2018-12-13 04:00] VITALS: BP 141/78
[2018-12-13 04:05] VITALS: BP 141/78
[2018-12-13] MEDS: NovoLOG Insulin Flexpen SUBQ SCH ×2 (06:00→11:30)
[2018-12-13] MEDS: GlipiZIDE 5mg tab ORAL SCH (06:04)
[2018-12-13] MEDS: metFORMIN 500mg tab ORAL SCH ×2 (06:04→11:51)
--- NOTE | 2018-12-13 07:44 | NUR ---
HAND-OFF: Report given to Misti Fragoso
[2018-12-13 08:00] VITALS: BP 134/86
--- NOTE | 2018-12-13 08:09 | NUR ---
DISCHARGE PLAN PLAN IS FRO PATIENT TO RETURN HOME TODAY [employer] FAXED SHOWER CHAIR ORDER TO [employer]ECH COMMUNICATION INSTRUCTOR [employer] ALSO CALLED AND SPOKE WITH [employer] COMMUNICATION INSTRUCTOR REGARDING SHOWER CHAIR BEING DELIVERED TO PATIENT'S HOME SPEECH COMMUNICATION INSTRUCTOR TIA YUSUF T: [phone] [id number] F: [phone]
[2018-12-13] MEDS: Docusate 100mg cap ORAL SCH (08:12)
[2018-12-13] MEDS: Sennosides 8.6mg tab ORAL SCH (08:12)
[2018-12-13] MEDS: Hydromorphone 0.5mg/0.5ml inj IVP PRN (09:02)
[2018-12-13 12:00] VITALS: BP 104/73
--- NOTE | 2018-12-13 14:29 | NUR ---
NURSE NOTES: Pt discharge with prescriptions, per pt prescriptions given to son.. Pt requested that Dr Carter be called in regards to pain medication pt feels that her pain will not be managed with current orders. Dr Carter did change orders. Pt cleared by PT . Shower chair , and standard walker for home use, . Package given to include diabetic meals , back exercise. Pt to follow up with [facility] for questions related to showering. IV removed pt escorted by son
--- NOTE | 2018-12-14 09:38 | NUR ---
*-* INSURANCE *-* ALL CLINICALS AND REVIEWS HAVE BEEN FAXED TO: [facility] p:[phone] f:[phone]
--- NOTE | 2018-12-14 12:49 | Discharge Summary ---
Discharge Summary Hospital Course Date of Admission December 11, 2018 at 06:47 Date of Discharge December 13, 2018 at 16:50 Admitting Diagnosis L5S1 HNP with radiculopathy Reason for Hospitalization: elective surgery HPI Nickolas Catherine is a 63 year old female who was admitted on December 11, 2018 at 06:47 for L5S1 HNP with radiculopathy. Patient was admitted for elective surgery. Consultations 1. Dr Dominique - IM/cardio 2. Dr Kincaid - pain specialist Procedures s/p 12/11/[address] Adams 1. Hemilaminectomy, medial facetectomy, left side L5-S1. 2. Microscopic diskectomy, left side L5-S1. 3. Procedure markedly complicated due to the patient's morbid obesity (BMI of 42). 4. Use of operating microscope. 5. Neurodiagnostic monitoring. 6. Use of fluoroscopy for localization purposes. Hospital Course status post surgery course of recovery uneventful initially IV fluids s/p perioperative antibiotics neurovascular status closely monitored, stable incision clean, dry, and intact pain management addressed pain specialist followed; pain controlled hemodynamically stable ambulated with PT fall precautions maintained; safe for ambulation DVT prophylaxis with SCD provided use of incentive spirometry was encouraged while in the bed tolerated diet , IV fluids discontinued Chloraseptic spray provided as needed to relieve discomfort GI prophylaxis provided antiemetics were on board as needed blood sugar was managed with oral anti-glycemic regimen, and remained stable statin continued voided freely bowel regimen instituted patient was stable for discharge discharge instructions provided follow up with surgeon as outpatient as advised by surgeon FINAL DIAGNOSES L5S1 HNP with radiculopathy s/p L5S1 Hemilaminectomy/discectomy Work related injury Diabetes mellitus Hyperlipidemia Morbid obesity Discharge Medications Continued Medications: Atorvastatin Calcium* (Atorvastatin Calcium*) 20 Mg Tablet 20 MG ORAL BEDTIME, TAB (This prescription has been renewed) Glipizide* (Glipizide*) 5 Mg Tablet 10 MG ORAL BIDAC, TAB (This prescription has been renewed) Metformin Hcl* (Metformin Hcl*) 500 Mg Tablet 500 MG ORAL TID, TAB (This prescription has been renewed) Pioglitazone Hcl* (Actos*) 30 Mg Tablet 30 MG ORAL DAILY, TAB (This prescription has been renewed) Discharge Condition Upon Discharge: stable Discharge Disposition Patient was discharged home Discharge Instructions Discharge Instructions Special Instructions I have been assigned to complete a D/C Summary on this account. I was not involved in the patient management Luz Elena Webber NP December 14, 2018 12:49
== END 2018-12-13 16:50 | disposition home or self-care (01) | DRG 519 ==
LOC: SDSOVERFLO 06:47 → 3E 11:46
PROC: 4A11X4G Monitoring of Peripheral Nervous Electrical Activity, Intraoperative, External Approach (ICD-10-PCS; principal; 2018-12-11 08:30)
PROC: 01NB0ZZ Release Lumbar Nerve, Open Approach (ICD-10-PCS; principal; 2018-12-11 08:30)
PROC: 0ST40ZZ Resection of Lumbosacral Disc, Open Approach (ICD-10-PCS; principal; 2018-12-11 08:30)
DX: M51.17 Intervertebral disc disorders with radiculopathy, lumbosacral region (principal); Z68.41 Body mass index [BMI] 40.0-44.9, adult; E66.01 Morbid (severe) obesity due to excess calories; E78.5 Hyperlipidemia, unspecified; M79.2 Neuralgia and neuritis, unspecified; Z86.718 Personal history of other venous thrombosis and embolism; G89.18 Other acute postprocedural pain
CPT/HCPCS: 36415; 72020; 76000; 80048; 82962; 86850; 86900; 86901; 87081; 94003; 94150; J1815; J2405